=== PATIENT | female | born 1935 | race Caucasian/White ===

== ENCOUNTER 2016-10-13 18:11 | Observation (INO) | payer MEDICARE, OTHER ==
[2016-10-13] MEDS ORDERED: Acetaminophen TAB* 325 MG PO ONE (20:31)
[2016-10-13 21:07] LABS: Hematocrit 41 % (35-47); Hemoglobin 13.3 g/dl (12.0-16.0); Mean Corpuscular HGB Conc 32 g/dl (31-36); Mean Corpuscular Hemoglobin 28 pg (27-31); Mean Corpuscular Volume 87 fL (80-97); Mean Platelet Volume 9 um3 (7.4-10.4); Red Blood Count 4.73 10^6/ul (4.0-5.4); Red Cell Distribution Width 14 % (10.5-15); White Blood Count 13.8 10^3/ul (3.5-10.8)
--- NOTE | 2016-10-13 21:25 | RAD ---
INDICATION: Syncope. Right chest pain COMPARISON: None TECHNIQUE: An AP portable view obtained at 2103 hours is submitted. FINDINGS: Bones/Soft Tissues: There are no acute bony findings. Cardiomediastinal: The cardiomediastinal silhouette is mildly prominent. Lungs: There are no infiltrates. Pleura: There are no definite pleural effusions. Other: None IMPRESSION: MILDLY ENLARGED CARDIAC SILHOUETTE. NO ACTIVE DISEASE
--- NOTE | 2016-10-13 21:26 | RAD ---
INDICATION: Right elbow injury COMPARISON: None TECHNIQUE: AP and lateral views were obtained. FINDINGS: The bony structures, joint spaces, and soft tissues are normal for age. IMPRESSION: NO ACUTE BONY FINDINGS.
--- NOTE | 2016-10-13 21:27 | RAD ---
INDICATION: Right wrist injury COMPARISON: None TECHNIQUE: AP and lateral views were obtained. FINDINGS: There is a angulated fracture of the distal one third of the radial diaphysis. The angular deformity measures approximately 20 degrees. There is soft tissue swelling with mild deformity. There are no additional acute findings. There is degenerative change about the base of the thumb IMPRESSION: ANGULATED FRACTURE OF THE DISTAL DIAPHYSIS OF THE RADIUS
[2016-10-13 21:35] LABS: ALT 22 U/L (7-52); AST 37 U/L (13-39); Albumin 4.2 g/dL (3.2-5.2); Alkaline Phosphatase 65 U/L (34-104); Anion Gap 10 mmol/L (2-11); BUN/Creatinine Ratio 26.4 (8-20); Blood Urea Nitrogen 23 mg/dL (6-24); CO2 Carbon Dioxide 24 mmol/L (22-32); Calcium 9.3 mg/dL (8.6-10.3); Chloride 104 mmol/L (101-111); EGFR African American 80.6 (>60); EGFR Non-African American 62.6 (>60); Globulin 2.7 g/dL (2-4); Glucose 177 mg/dL (70-100); Potassium 3.6 mmol/L (3.5-5.0); Sodium 138 mmol/L (133-145); Total Protein 6.9 g/dL (6.4-8.9)
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
[2016-10-13 21:52] LABS: Alcohol < 10 mg/dL (<10)
[2016-10-13 22:02] LABS: TSH (Thyroid Stimulating Horm) 2.64 mcIU/mL (0.34-5.60)
[2016-10-13] MEDS ORDERED: oxyCODONE/Acetamin 5/325 MG* TAB PO PRN (22:13)
[2016-10-13] MEDS ORDERED: Morphine INJ* 2 MG/ML 1 ML CARPUJECT IV PRN (22:13)
[2016-10-13 22:27] LABS: Prolactin 6.9 ng/mL (1.0-25.0)
[2016-10-13] MEDS ORDERED: Enoxaparin(*) 40 MG/0.4 ML SYR SUBCUT SCH (23:00)
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
[2016-10-14 00:42] LABS: Urine Bacteria Absent (Absent); Urine Bilirubin Negative (Negative); Urine Glucose Negative (Negative); Urine Nitrite Negative (Negative)
[2016-10-14] MEDS: Acetaminophen TAB* 325 MG PO PRN ×2 (05:07→10:07)
[2016-10-14 05:44] LABS: BUN/Creatinine Ratio 26.5 (8-20); Calcium 8.9 mg/dL (8.6-10.3); EGFR African American 107.1 (>60); EGFR Non-African American 83.3 (>60); Potassium 3.5 mmol/L (3.5-5.0)
[2016-10-14] MEDS ORDERED: Levothyroxine TAB* 50 MCG TAB PO SCH (06:00)
[2016-10-14 07:53] LABS: Benzodiazepine Urine Screen None Detected (None Detect)
[2016-10-14] MEDS ORDERED: Aspirin Low Dose CHEW TAB* 81 MG PO SCH (09:00)
[2016-10-14] MEDS ORDERED: Losartan TAB* 25 MG PO SCH (09:00)
[2016-10-14] MEDS ORDERED: amLODIPine TAB* 5 MG PO SCH (09:00)
--- NOTE | 2016-10-14 10:27 | RAD ---
INDICATION: Syncope. COMPARISON: There are no prior studies available for comparison. TECHNIQUE: Multiple grayscale, color and Doppler tracings of the common, internal and external carotid and vertebral arteries were obtained. Stenosis estimations reflect velocity criteria that it been correlated to angiographic stenosis calculations based on the distal internal carotid diameter. RIGHT CAROTID: There is no significant plaque seen within the right carotid artery. The peak systolic velocity in the proximal right internal carotid artery is 76 cm/s and the maximum end-diastolic velocity is 13 cm/s. The peak systolic velocity in the distal right common carotid artery is 185 cm/s and the maximum end-diastolic velocity is 20 cm/s. The internal to common carotid artery ratio is 0.4. This would be consistent with a 0% stenosis. LEFT CAROTID: There is no plaque within the left carotid artery. The peak systolic velocity in the proximal left internal carotid artery is 93 cm/s and the maximum end-diastolic velocity is 26 cm/s. The peak systolic velocity in the distal left common carotid artery is 139 cm/s and the maximum end-diastolic velocity is 31 cm/s. The internal to common carotid artery ratio is 0.7. This would be consistent with a 0% stenosis. VERTEBRALS: There is antegrade flow in both vertebral arteries. IMPRESSION: NORMAL STUDY, NO EVIDENCE FOR CAROTID STENOSIS. CPT II Codes: 3100F
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
[2016-10-14 15:06] VITALS: BP 130/45
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
[2016-10-14] MEDS ORDERED: Atorvastatin* 10 MG TAB PO SCH (17:00)
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
== END 2016-10-14 15:55 | disposition home or self-care (01) ==
LOC: ED 18:11 → MEDTELE 23:30
PROVIDERS: ADMIT Hospitalist; ATTEND Internal Medicine
DX: R55 Syncope and collapse (principal); S52.501A Unspecified fracture of the lower end of right radius, initial encounter for closed fracture; V48.0XXA Car driver injured in noncollision transport accident in nontraffic accident, initial encounter; Y92.410 Unspecified street and highway as the place of occurrence of the external cause; I10 Essential (primary) hypertension; E03.9 Hypothyroidism, unspecified; D72.829 Elevated white blood cell count, unspecified; Z79.82 Long term (current) use of aspirin; Z79.899 Other long term (current) drug therapy; R94.31 Abnormal electrocardiogram [ECG] [EKG]
CPT/HCPCS: 36415; 70450; 71010; 80048; 80053; 80307; 80320; 81003; 81015; 83605; 83735; 84146; 84443; 84484; 85025; 87086; 93005; 93306; 93880; 96372; 99283; A9270-GY; G0378; G0480; J1650

== ENCOUNTER → 2016-10-20 09:55 | Day surgery (SDC) | payer OTHER ==
[~2016-10-20 09:55] MED LIST: Buffered Lidocaine 1% SYR 3ML* 3 ML/SYR SYRINGE INTRADERM ONE; Buffered Lidocaine 1% SYR 3ML* 3 ML/SYR SYRINGE ONE; Bupivacaine 0.25% SDV* 30 ML ONE; Dexamethasone IV* 4 MG/ML 1 ML (4 MG) IV SLOW PU ONE; Dexamethasone IV* 4 MG/ML 1 ML (4 MG) ONE; DiMENhydriNATE IV* 50 MG/ML VIAL IV PUSH PRN; Famotidine IV* 10 MG/ML 2 ML (20 mg) IV ONE; Famotidine IV* 10 MG/ML 2 ML (20 mg) ONE; HYDROmorphone INJ* 1 MG/ML CARPUJECT SYRINGE IV PRN; HYDROmorphone INJ* 1 MG/ML CARPUJECT SYRINGE ONE; Ketorolac INJ* 30 MG/ML 1 ML VIAL ONE; Lidocaine 2% PF * 5 ML VIAL ONE; Midazolam* 1 MG/ML 2 ML VIAL (2 MG) ONE; Ondansetron INJ* 2 MG/ML VIAL IV PRN; Ondansetron INJ* 2 MG/ML VIAL ONE; PROCHLORPERAZINE INJ 5 MG/ML 2 ML VIAL IV PRN; Propofol* 10 MG/ML 20 ML BTL IV PUSH ONE; ceFAZolin 2 GM PREMIX (*) 2 GM/50 ML BAG IVPB ONE; fentaNYL* 50 MCG/ML 2 ML VIAL (100 MCG VIAL) ONE; oxyCODONE/Acetamin 5/325 MG* TAB ONE
[2016-10-20] MEDS: fentaNYL* 50 MCG/ML 2 ML VIAL (100 MCG VIAL) IV PRN ×3 (14:18→15:42)
[2016-10-20 17:03] VITALS: BP 139/71
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
--- NOTE | 2016-10-21 07:42 | RAD ---
INDICATION: Traumatic fracture right radius-ORIF COMPARISON: Right wrist October 13, 2016 FINDINGS: 1 minute and 30 seconds of fluoroscopy were provided for the orthopedics department. Fluoroscopic spot imaging of the right wrist were obtained for operative control and show open reduction and internal fixation of the distal radial fracture with placement of a cortical plate and screws . CPT II Codes: 6045F (fluoro time doc)
== END | disposition home or self-care (01) ==
LOC: OR 09:55
PROVIDERS: ATTEND Orthopaedic Surgery
DX: S52.301A Unspecified fracture of shaft of right radius, initial encounter for closed fracture (principal); I34.0 Nonrheumatic mitral (valve) insufficiency; I10 Essential (primary) hypertension; E03.9 Hypothyroidism, unspecified; V89.2XXA Person injured in unspecified motor-vehicle accident, traffic, initial encounter; Y92.410 Unspecified street and highway as the place of occurrence of the external cause
CPT/HCPCS: 76000; A9270-GY; C1713; C1776; J0690; J1100; J1170; J1885; J2250; J2405; J2704; J3010

== ENCOUNTER → 2016-12-20 09:31 | Day surgery (SDC) | payer MEDICARE ==
[~2016-12-20 09:31] MED LIST changes: -Buffered Lidocaine 1% SYR 3ML* 3 ML/SYR SYRINGE INTRADERM ONE; -Buffered Lidocaine 1% SYR 3ML* 3 ML/SYR SYRINGE ONE; +Buffered Lidocaine 1% SYRIN* 3 ML/SYR SYRINGE INTRADERM ONE; -DiMENhydriNATE IV* 50 MG/ML VIAL IV PUSH PRN; -HYDROmorphone INJ* 1 MG/ML CARPUJECT SYRINGE IV PRN; -HYDROmorphone INJ* 1 MG/ML CARPUJECT SYRINGE ONE; -Ketorolac INJ* 30 MG/ML 1 ML VIAL ONE; +Lidocaine 1% INJ* 10 MG/ML 30 ML SDV ONE; -Lidocaine 2% PF * 5 ML VIAL ONE; -Ondansetron INJ* 2 MG/ML VIAL IV PRN; -PROCHLORPERAZINE INJ 5 MG/ML 2 ML VIAL IV PRN; -ceFAZolin 2 GM PREMIX (*) 2 GM/50 ML BAG IVPB ONE; +ceFAZolin 2 GM PREMIX(*) 2 GM/50 ML BAG IVPB ONE; -oxyCODONE/Acetamin 5/325 MG* TAB ONE
[2016-12-20 12:46] VITALS: BP 120/51
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
== END | disposition home or self-care (01) ==
LOC: OREAST 09:31
PROVIDERS: ATTEND Orthopaedic Surgery
DX: T81.69XA Other acute reaction to foreign substance accidentally left during a procedure, initial encounter (principal); I10 Essential (primary) hypertension; I34.0 Nonrheumatic mitral (valve) insufficiency; J45.909 Unspecified asthma, uncomplicated; E03.9 Hypothyroidism, unspecified; Y83.9 Surgical procedure, unspecified as the cause of abnormal reaction of the patient, or of later complication, without mention of misadventure at the time of the procedure
CPT/HCPCS: 87070; 87073; 87205; J0690; J1100; J2001; J2250; J2405; J2704; J3010

== ENCOUNTER 2018-05-31 14:31 | Day surgery (SDC) | payer MEDICARE ==
--- NOTE | 2018-05-30 16:07 | HP ---
PREOPERATIVE HISTORY AND PHYSICAL: DATE OF ADMISSION/SURGERY: 05/31/18 DATE OF OFFICE VISIT: 05/30/18 ATTENDING SURGEON: Dr. Lay Pemberton.* (DICTATED BY TRINO COLEMAN) PROCEDURE: Right forearm incision and drainage and exploration. CHIEF COMPLAINT: Right forearm. HISTORY OF PRESENT ILLNESS: Carlie is an 82-year-old female, who presents to the clinic for her right arm. She had a previous incision for removal of foreign body in that area after a right wrist ORIF. She notes in the past couple of months, she had a mass in her arm and in the past couple of weeks, it has been red and swollen. Dr. Pemberton ordered labs, which showed no evidence of acute infection, but she was seen today in clinic with a local abscess. She has had some chills, but denies fever. Her temperature today is within normal limits. She denies numbness, tingling, chest pain, shortness of breath, and is doing well otherwise. PAST MEDICAL HISTORY: Hypertension, asthma, high cholesterol, history of colitis, thyroid problems, depression, anxiety. PAST SURGICAL HISTORY: Hysterectomy, knee replacement, 2 surgeries for prolapse of bladder, back surgery, right wrist ORIF, right arm I and D, removal of foreign body. MEDICATIONS: 1. Cephalexin 250 mg 1 by mouth every 6 hours. 2. Asmanex Twisthaler 60 metered doses 200 mcg per inhalation. 3. Fluticasone propionate 50 mcg per ACT daily. 4. Amlodipine besylate 2.5 mg daily. 5. Atorvastatin 10 mg daily. 6. Losartan potassium 100 mg daily. 7. Synthroid 50 mcg daily 8. Levothyroxine 50 mcg 1 tab by mouth once daily. 9. Vitamin D2 2000 units 1 by mouth every day. 10. Vitamin B12 1000 mcg 1 by mouth every day. 11. Aspirin 81 mg 1 by mouth daily. 12. Sarah 180 mg 1 by mouth daily. 13. B-Plex Plus 1 daily. 14. Acephen 325 mg 1 by mouth daily. ALLERGIES: DUST MITE and POLLEN. FAMILY HISTORY: Positive for hypertension in her mother and father. SOCIAL HISTORY: She lives with her spouse. He has uidj-qf-ckoampnt dementia for which she is the primary caregiver. She is not working. She denies tobacco or alcohol use. She exercises occasionally. She is right-hand dominant. REVIEW OF SYSTEMS: A 14-point review of systems was reviewed with the patient. Positive for current complaint, otherwise negative. Positive for chills. Denies fever, chest pain, shortness of breath, history of bleeding disorder, history of DVT or PE. PHYSICAL EXAMINATION GENERAL: An 82-year-old, well-developed, well-nourished female, in no acute distress. Alert and oriented x3. Appropriate mood and affect. Appropriate balance and coordination of the upper extremities. VITAL SIGNS: Height 61, weight 132, blood pressure 126/60, respiratory rate 20 , temperature 97.7, BMI 24.9. HEENT: Normocephalic, atraumatic. PERRLA. Throat clear. NECK: Supple. PULMONARY: Lungs are clear to auscultation bilaterally. No wheezing, rhonchi, or rales. CARDIO: Regular rate and rhythm. S1, S2. No murmurs, gallops, or rubs. No edema. ABDOMEN: Positive bowel sounds. Soft, nontender. NEURO: Alert and oriented x3. Cranial nerves grossly intact. Sensation intact to light touch. MUSCULOSKELETAL: Right upper extremity: The incision is well healed. She does have a local abscess in the area that is fluctuant to palpation with surrounding warmth and erythema. Full range of motion of the elbow, wrist, and hand. Able to perform a thumbs-up, okay, flex and extend fingers and abduct her digits. +2 radial pulse. Sensation intact to light touch distally. Left upper extremity: Skin is intact. No warmth or erythema. Nontender to palpation. Full pain-free range of motion. DIAGNOSTIC STUDIES: No evidence of acute fracture or dislocation. ASSESSMENT: Right forearm abscess. PLAN: Carlie is an 82-year-old female, who presents to the clinic for followup of her right arm. She presents today in clinic with a right arm abscess that is worse from the previous visit; therefore, Dr. Pemberton has scheduled the patient to undergo a right forearm incision and drainage and exploration for treatment of the abscess. She will follow up 10 to 14 days postop and Percocet will be used for postop pain management. TRINO COLEMAN [id number]/[facility] #: [id number] [facility]
[2018-05-31] MEDS ORDERED: Ketorolac INJ* 30 MG/ML 1 ML VIAL IV PRN (15:35)
[2018-05-31] MEDS ORDERED: HYDROcodone/ACETAMIN 5-325 MG* 1 TAB PO PRN (15:35)
[2018-05-31] MEDS ORDERED: Naloxone* 0.4 MG/ML 1 ML VIAL IV PRN (15:35)
[2018-05-31] MEDS ORDERED: Acetaminophen TAB* 325 MG PO PRN (15:35)
[2018-05-31] MEDS ORDERED: oxyCODONE/Acetamin 5/325 MG* TAB PO PRN (15:35)
[2018-05-31] MEDS ORDERED: fentaNYL* 50 MCG/ML 2 ML VIAL (100 MCG VIAL) IV PRN (15:35)
[2018-05-31] MEDS ORDERED: DiMENhydriNATE IV* 50 MG/ML VIAL IV PUSH PRN (15:35)
[2018-05-31] MEDS ORDERED: fentaNYL* 50 MCG/ML 2 ML VIAL (100 MCG VIAL) ONE (17:12)
[2018-05-31] MEDS ORDERED: Propofol* 10 MG/ML 20 ML BTL IV PUSH ONE (17:12)
[2018-05-31] MEDS ORDERED: ceFAZolin 2 GM in NS PREMIX(*) 2 GM/100 ML BAG IVPB ONE (17:56)
[2018-05-31] MEDS ORDERED: Bupivacaine 0.25% SDV PF* 10 ML VIAL INJ ONE (18:01)
[2018-05-31] MEDS ORDERED: Lidocaine 1% INJ* 10 MG/ML 30 ML SDV ONE ×2 (18:11→18:43)
[2018-05-31 19:35] VITALS: BP 126/48
--- NOTE | 2018-06-02 06:37 | OP ---
DATE OF OPERATION: 05/31/18 [facility] DATE OF : 35 ATTENDING SURGEON: Lay Pemberton MD PHP PROGRAMMER: TRINO Watson ANESTHESIOLOGIST: Dr. Bernabe. PRE-OP DIAGNOSIS: Right arm abscess with possible retained foreign body. POST-OP DIAGNOSIS: Right arm abscess. INDICATIONS: Briefly, Carlie Patino is a pleasant 82-year-old female who has had an ORIF of her radius over a year and a half ago. She then had to go subsequently back for removal of foreign body from the dorsum of the wrist. She has noticed in the last few weeks an increasing swelling and redness and pain with touching it. We were watching her checking a CT scan to make sure there is no evidence of nonunion or infected union. But the swelling acutely got worse and reddened. She started developing some severe cellulitis. Decision was made to do an I and D and exploration. Risks and benefits were discussed at length including but not limited to bleeding; infection; damage to nerves, vessels, surrounding structures; wound nonhealing; persistent pain; need for further surgery; scarring; stiffness; incomplete relief of symptoms; and risk of anesthesia. DESCRIPTION OF PROCEDURE: The patient was greeted in the preoperative area by the attending surgeon. Correct extremity was marked, consent was confirmed. The patient was brought back to the operating suite where she was left on her stretcher and then a hand table was brought out. The right arm was draped in the usual sterile fashion with chlorhexidine soap, scrub, and alcohol wipe and a final prep with ChloraPrep. After appropriate surgical pause indicating site, side, procedure, and administration of antibiotics, a 15-blade was used to make an incision in line with the abscess. There was obvious blood and pus present. It was very superficial, did not go deep past the fascia. The fascial layer was identified. Soft tissue was carefully debrided. Approximately 3 L of sterile saline were then lavaged through the wound. Rims of the tissue were then debrided back and then the wounds were then closed with 3-0 Monocryl for deep layer and 3-0 nylon for her skin. Sterile dressings were applied. She was awoken from anesthesia and transferred to PACU in stable condition. POSTOPERATIVE PLAN: She will be nonweightbearing. She will be on Bactrim for approximately 7 days. We will start soapy soaks on postop day 1 or 2. I will see her in my office on Tuesday. [id number]/[facility] #: [id number] ANKIT
== END 2018-05-31 19:46 | disposition home or self-care (01) ==
LOC: OR 14:31
PROVIDERS: ATTEND Orthopaedic Surgery
DX: L02.413 Cutaneous abscess of right upper limb (principal); Z87.828 Personal history of other (healed) physical injury and trauma; I10 Essential (primary) hypertension; J45.909 Unspecified asthma, uncomplicated; F41.8 Other specified anxiety disorders; E78.5 Hyperlipidemia, unspecified; E03.9 Hypothyroidism, unspecified
CPT/HCPCS: 87070; 87073; 87205; J0690; J2704; J3010; J3490

== ENCOUNTER 2018-06-23 11:05 | Day surgery (SDC) | payer MEDICARE ==
[~2018-06-23 11:05] MED LIST changes: -Buffered Lidocaine 1% SYRIN* 3 ML/SYR SYRINGE INTRADERM ONE; -Bupivacaine 0.25% SDV* 30 ML ONE; -Dexamethasone IV* 4 MG/ML 1 ML (4 MG) IV SLOW PU ONE; -Dexamethasone IV* 4 MG/ML 1 ML (4 MG) ONE; -Famotidine IV* 10 MG/ML 2 ML (20 mg) IV ONE; -Famotidine IV* 10 MG/ML 2 ML (20 mg) ONE; -Lidocaine 1% INJ* 10 MG/ML 30 ML SDV ONE; -Midazolam* 1 MG/ML 2 ML VIAL (2 MG) ONE; -Ondansetron INJ* 2 MG/ML VIAL ONE; -Propofol* 10 MG/ML 20 ML BTL IV PUSH ONE; +Sodium Citrate/Citric Acid* 15 ML UDC PO ONE; -ceFAZolin 2 GM PREMIX(*) 2 GM/50 ML BAG IVPB ONE; -fentaNYL* 50 MCG/ML 2 ML VIAL (100 MCG VIAL) ONE
[2018-06-23] MEDS ORDERED: Sodium Citrate/Citric Acid* 15 ML UDC ONE (11:15)
[2018-06-23] MEDS ORDERED: ceFAZolin 2 GM in NS PREMIX(*) 2 GM/100 ML BAG IVPB ONE (11:15)
[2018-06-23] MEDS ORDERED: Mepivacaine 2% MPF (20 MG/ML)* 20 ML MPF ONE (13:58)
[2018-06-23] MEDS ORDERED: Mepivacaine 1% (10 MG/ML)* 30 ML SDV ONE (13:58)
[2018-06-23] MEDS ORDERED: Midazolam* 1 MG/ML 2 ML VIAL (2 MG) ONE (14:08)
[2018-06-23] MEDS ORDERED: fentaNYL* 50 MCG/ML 2 ML VIAL (100 MCG VIAL) ONE (14:08)
[2018-06-23] MEDS ORDERED: Propofol* 10 MG/ML 20 ML BTL IV PUSH ONE (14:38)
[2018-06-23] MEDS ORDERED: Vancomycin(*) 1,000 MG VIAL ONE (14:49)
[2018-06-23] MEDS ORDERED: Naloxone* 0.4 MG/ML 1 ML VIAL IV PRN (16:25)
[2018-06-23 16:42] VITALS: BP 134/62
--- NOTE | 2018-06-26 07:53 | RAD ---
INDICATION: Removal of hardware with bone biopsy , abscess upper limb COMPARISONS: June 20, 2018 CT TECHNIQUE: Fluoroscopy was provided for a surgical procedure. Total fluoroscopy time is: 29 seconds FINDINGS: Spot images demonstrate removal of the fixation plate of the radius. IMPRESSION: FLUOROSCOPY WAS PROVIDED FOR A SURGICAL PROCEDURE CPT II Codes: G9500
--- NOTE | 2018-06-26 09:30 | OP ---
CC: PCP, Dr. Mcdaniels * DATE OF OPERATION: 06/23/18 [facility] DATE OF : 35 SURGEON: Lay Pemberton MD SUPERVISOR DAIRY SANITATION: TRINO Pan ANESTHESIOLOGIST: Dr. Hernandez. PRE-OP DIAGNOSIS: Right forearm possible infection of a previous open reduction and internal fixation of the right radial shaft. POST-OP DIAGNOSIS: Right healed radius with foreign body and granuloma with no obvious infection. OPERATIVE PROCEDURE: 1. Right forearm removal of hardware. 2. Removal of foreign body. 3. I and D with 9 L of sterile saline. 4. Revision ORIF with Ene-Nashua plate. COMPLICATIONS: None. SPECIMENS: Sent to the lab for micro lab. No pathology specimen. ESTIMATED BLOOD LOSS: Minimal. TOURNIQUET TIME: 82 minutes. INDICATIONS: Carlie Patino is an 82-year-old female who underwent ORIF of her radial shaft in October 2016. Because of the bone quality and her skin quality during the surgery, the drill bit plunged and was wrapped in sterile towel. She healed well but has symptomatic dorsal mass that was then I and D and removed approximately 2 months later where the foreign body was identified. She was well for about a year and a half until she recently started to notice the swelling occurred and she struck it several times. There is concern for a possible abscess. She was taken to the OR approximately 2 to 3 weeks ago for revision I and D. There was no evidence of purulence or infection, but she started to develop more drainage. Lab values remained normal with a normal white blood cell count, ESR, CRP. CT scan was done that demonstrated that the bone had healed along the ulnar aspect, but there was a small defect in the radius, concern for possible infectious hardware was present. After extensive discussion with the family and the patient as well as consulting to hand specialist in the area, it was determined that removal of hardware and exploration would be appropriate. Possible revision of hardware with significantly thorough irrigation and debridement including removal of any sinus tract if it is present. Cultures were going to be obtained at the time of surgery as well for evaluation. After extensive discussion with the family and the patient, the risks and benefits were discussed at length included but not limited to bleeding; infection; damage to nerves, vessels, surrounding structures; risk of re-fracture; persistent pain, incomplete relief of symptoms ; risk of nonunion, malunion, recurrent infection, and risk of DVT and risk of anesthesia were discussed at length. The patient and her family elected to proceed. DESCRIPTION OF PROCEDURE: The patient was greeted in the preoperative area by the attending surgeon. Correct extremity was marked, consent was confirmed. The patient was brought back to the operating suite, was placed in a supine position on the operating room table. She underwent interscalene nerve block and local MAC. The right arm was then prepped and draped in the usual sterile fashion after an unsterile tourniquet was placed high in the proximal arm. The skin was prepped with chlorhexidine soap, scrub, and alcohol wipe and a final prep with ChloraPrep. There was no evidence of an abscess or any kind of break in the skin. There was a small amount of healed tissue from the previous incision dorsally. The volar wound had completely healed without any sort of erythema, warmth, or any signs or symptoms of infection. After appropriate surgical pause indicating side, site, procedure, and administration of antibiotics, the limb was exsanguinated. The tourniquet inflated of 250 mmHg. A 15-blade was used to make an incision volarly between the FCR, brachioradialis. The previous incision was opened and extended more distally and slightly more proximally as well. Soft tissues were carefully dissected. There was abundant scar that was present. The brachioradialis and radial artery were identified, FCR was also identified. Dissection again distally and tracked proximally. The hardware was readily available. Care was taken to protect the radial artery at all times as well as the brachioradialis and FCR. Once the plate was fully identified, there was no evidence of purulence or infection. Sample tissues were began being given to the testing tech. At this point, the screws were then all exposed and removed with an adequate purchase to the bone. At this point, a small curette was used to clean out the small screw holes, there were 6 total. There was no evidence of purulence. Once this was done, attention was directed dorsally. A fresh 15- blade was used to make an incision over the previously made incision where the dorsal mass had been. Soft tissue carefully exposed. Again, there was no pus or purulence. At this point, the curette was placed to the two holes that were most close to the fracture site to make sure there was no sinus tract to track all the way through the dorsal wound and which there was not and this was done. There was some yellowish type of granulation tissue, which was identified and noted for later review. The remainder of the plate was removed. The previous drill holes and the soft tissues from under the plate and around the plate in the fracture the site were then sent for specimen for culture and Gram stain. At this point, the small area of granulation tissue was identified dorsally. There was evidence of full union, but there was a small defect that was visible in her previous x-rays and CT scan. There was no evidence of nonunion. The fracture site was carefully probed and palpated, and it was found to be stable, but there was granulation tissue. This was tracked and was carefully removed with care to not damage the tendon, muscle tissue, or anything in its way. This was dissected very carefully with loupe magnification. As this was done, there was no evidence of necrosis or pus, but there was evidence of another foreign body, which may have been more towel from the initial surgery. The granuloma was carefully enveloped and tracked as far proximally and distally as possible until good healing bleeding tissue was identified. No muscle was taken. Once this was complete and the fracture site was also probed to make sure that there was no granulation tissue or any kind of formed tissue there, the screw sites were debrided once more. The wound was then copiously irrigated with 9 L of sterile saline to make sure there was connection volarly to dorsally as well. The wounds were copiously irrigated with a TURP tubing and then gentle gravity assisted irrigation. Once this was complete, images were obtained with the x-ray to visualize the fracture again. The patient is 82-year-old and has a high risk of falling and breaking through the small fracture site. Although there was a solid nonunion, she did move a portion of her fracture site and her bone quality while being okay quality was not robust quality. Decision was made to put a spanning plate longer than her previous plate to offer protection to prevent further fracture. A Ene-Nashua plate was then chosen, it is approximately a 9-hole plate. This was secured first, position was confirmed through arthroscopic visualization after the pronator was elevated distally and it was placed on the bone. Once the appropriate line was identified, it was fixed first distally with a nonlocking screw and then proximally. This plate did not conform well to her bone but was acceptable without significant overhang. After this was done, the more distal screws were then secured with care to gently be placed under the supinator with care not to stretch or extend or damage or perforate to cause iatrogenic damage to the PIN and radial artery. Then, attention was directed distally and the distal locking screws, 3, were then placed. Final images were obtained. The wounds were irrigated again. Powdered Vanco was placed about the volar and dorsal aspect of the wound. The soft tissues were then closed. The pronator was closed with 3-0 Monocryl distally. The skin was closed in layers with 3-0 Monocryl and #3 nylon suture. Dorsally, the wound was closed in a similar fashion. Sterile dressings were applied and a volar splint was applied. Tourniquet was deflated with a total time of 82 minutes. The extremities were pink and well perfused after surgery. She was given a sling and awoken from anesthesia, transferred to PACU in stable condition. POSTOPERATIVE PLAN: She will be nonweightbearing. She will be on the splint for approximately 10 days. She will be seen in the office after 10 to 14 days. She will be on at least 2 weeks of antibiotics. Cultures are pending and initial preliminary Gram stain and culture were negative. I will order repeat x -rays at her next visit. She will be discharged on Augmentin. DVT prophylaxis was considered but deferred due to no previous personal or family history. I will see the patient back in 10 to 14 days. [id number]/[facility] #: [id number] ANKIT
== END 2018-06-23 17:00 | disposition home or self-care (01) ==
LOC: OREAST 11:05
PROVIDERS: ATTEND Orthopaedic Surgery
DX: S52.331D Displaced oblique fracture of shaft of right radius, subsequent encounter for closed fracture with routine healing (principal); T81.59 Other complications of foreign body accidentally left in body following procedure; I10 Essential (primary) hypertension; E03.9 Hypothyroidism, unspecified; J45.909 Unspecified asthma, uncomplicated; F41.8 Other specified anxiety disorders; X58.XXXD Exposure to other specified factors, subsequent encounter; Y92.9 Unspecified place or not applicable
CPT/HCPCS: 76000; 87070; 87073; 87102; 87116; 87205; 87206; 88300; A9270-GY; C1713; J0670; J0690; J2250; J2704; J3010; J3370

== ENCOUNTER 2024-10-04 09:05 | Inpatient (IN) ==
[2024-10-04 11:08] LABS: Hematocrit 36.2 % (35-45); Hemoglobin 12.2 g/dL (11.5-14.3); Mean Corpuscular Hemoglobin 29.4 pg (27-33); Mean Corpuscular Hgb Conc 33.6 g/dL (31-36); Mean Corpuscular Volume 87.3 fL (80-97); Mean Platelet Volume 8.7 fL (7.5-11.2); Platelet Count 514 10^3/uL (150-450); Red Blood Count 4.14 10^6/uL (3.63-4.92); Red Cell Distribution Width 14.3 % (12-17); White Blood Count 18.9 10^3/uL (3.8-11.8)
[2024-10-04 11:42] LABS: ALT 17 U/L (7-52); Albumin/Globulin Ratio 1.3 (1-3); Alkaline Phosphatase 123 U/L (35-149); Anion Gap 15 mmol/L (2-16); Blood Urea Nitrogen 49 mg/dL (6-24); CO2 Carbon Dioxide 34 mmol/L (22-32); Calcium 11.7 mg/dL (8.6-10.3); Chloride 88 mmol/L (101-111); Creatinine, Serum 1.12 mg/dL (0.51-0.95); Globulin 3.1 g/dL (2-4); Glucose 118 mg/dL (70-100); Sodium 137 mmol/L (135-145); Total Bilirubin 0.7 mg/dL (0.2-1.0); Total Protein 7.1 g/dL (6.4-8.9); eGFR CKD-EPI 47.3 (>60)
[2024-10-04] MEDS: Iodixanol 320 (CONTRAST) 100 ML SDV IV ONE (12:25)
[2024-10-04 12:27] LABS: ABS Basophils 0.1 10^3/uL (0.0-0.1); ABS Lymphocytes 1.2 10^3/uL (1.0-4.8); ABS Monocytes 1.6 10^3/uL (0.0-0.9); Eosinophil % 0.2 %; Lymphocyte % 6.6 %
[2024-10-04 12:58] LABS: Potassium Redraw 2.5 mmol/L (3.5-5.0)
[2024-10-04] MEDS: KCL 20 MEQ/100 ML IVPREMIX 20 MEQ/100 ML BAG IV SCH (13:59)
[2024-10-04 14:02] LABS: Urine Appearance Turbid; Urine Bilirubin Negative (Negative); Urine Blood Negative (Negative); Urine Color Light-Yellow; Urine Glucose Negative (Negative); Urine Ketones Negative (Negative); Urine Nitrite Negative (Negative); Urine Protein Negative (Negative); Urine Specific Gravity 1.018 (1.002-1.030); Urine Urobilinogen 1+ (Negative)
[2024-10-04 14:04] LABS: Urine Bacteria 1+ /HPF (Absent); Urine Red Blood Cell 1+(3-5/hpf) /HPF (0-Trace); Urine White Blood Cell 3+(>20/hpf) /HPF (0-Trace)
[2024-10-04] MEDS: KCL 10 MEQ/50 ML IVPREMIX 10 MEQ/50 ML BAG IV SCH (15:30)
[2024-10-04 17:10] LABS: TSH Ultra Thyroid Stim Horm 0.81 mcIU/mL (0.34-5.60)
[2024-10-04 17:21] LABS: Folate > 20.00 ng/mL (5.90-24.80)
[2024-10-04 17:22] LABS: Vitamin B12 > 1450 pg/mL (180-914)
[2024-10-04] MEDS ORDERED: Senna TAB 8.6 mg TAB PO PRN (17:32)
[2024-10-04] MEDS: Enoxaparin 40 MG/0.4 ML SYR SUBCUT SCH (20:18)
[2024-10-04] MEDS: cefTRIAXone 1 gm/50 mL D5W 1 GM/50 ML BAG IV SCH (20:18)
[2024-10-04] MEDS: Lactated Ringers 1000 ml BAG 1,000 ML IV SCH (20:22)
[2024-10-05 05:54] LABS: Hematocrit 34.8 % (35-45); Hemoglobin 11.4 g/dL (11.5-14.3); Mean Corpuscular Hemoglobin 29.2 pg (27-33); Mean Corpuscular Hgb Conc 32.9 g/dL (31-36); Mean Corpuscular Volume 88.7 fL (80-97); Mean Platelet Volume 8.5 fL (7.5-11.2); Platelet Count 450 10^3/uL (150-450); Red Blood Count 3.92 10^6/uL (3.63-4.92); Red Cell Distribution Width 14.7 % (12-17); White Blood Count 18.1 10^3/uL (3.8-11.8)
[2024-10-05 06:06] LABS: ABS Basophils 0.1 10^3/uL (0.0-0.1); ABS Eosinophils 0.2 10^3/uL (0.0-0.5); ABS Lymphocytes 1.7 10^3/uL (1.0-4.8); ABS Monocytes 1.8 10^3/uL (0.0-0.9); ABS Neutrophils 14.2 10^3/uL (1.5-7.6); Eosinophil % 1.3 %; Lymphocyte % 9.5 %
[2024-10-05 06:35] LABS: Calcium 9.7 mg/dL (8.6-10.3); Creatinine, Serum 0.71 mg/dL (0.51-0.95); Magnesium 1.6 mg/dL (1.9-2.7); Phosphorus 2.1 mg/dL (2.5-5.0); Potassium 2.9 mmol/L (3.5-5.0); eGFR CKD-EPI 81.7 (>60)
[2024-10-05] MEDS: KCL 20 MEQ/100 ML IVPREMIX 20 MEQ/100 ML BAG IV SCH (09:50)
[2024-10-05] MEDS: Magnesium Sulf 4 GM/100 ML IV 4,000 MG/100 ML BAG IVPB ONE (09:50)
[2024-10-05] MEDS: Glycerin ADULT 2.4 gm SUPP PR ONE (13:57)
[2024-10-05] MEDS: cefTRIAXone 1 gm/50 mL D5W 1 GM/50 ML BAG IV SCH (20:12)
[2024-10-06 07:12] LABS: Hematocrit 39.6 % (35-45); Hemoglobin 12.9 g/dL (11.5-14.3); Mean Corpuscular Hgb Conc 32.6 g/dL (31-36); Mean Corpuscular Volume 88.9 fL (80-97); Mean Platelet Volume 8.5 fL (7.5-11.2); Platelet Count 450 10^3/uL (150-450); Red Blood Count 4.46 10^6/uL (3.63-4.92); Red Cell Distribution Width 14.6 % (12-17); White Blood Count 16.5 10^3/uL (3.8-11.8)
[2024-10-06 07:53] LABS: Calcium 9.1 mg/dL (8.6-10.3); Creatinine, Serum 0.74 mg/dL (0.51-0.95); Phosphorus 1.2 mg/dL (2.5-5.0); Potassium 3.2 mmol/L (3.5-5.0); eGFR CKD-EPI 77.8 (>60)
[2024-10-06] MEDS: Polyethylene Glycol 3350 17 GM PACKET PO PRN (08:38)
[2024-10-06] MEDS: Senna TAB 8.6 mg TAB PO SCH (08:38)
[2024-10-06] MEDS ORDERED: Potassium Chloride LIQUID 20 MEQ/15 ML LIQUID PO SCH (09:00)
[2024-10-06] MEDS: Potassium Phosphate IV 15 MMOL in NS 0.9% 250 ml 250 ML IVPB SCH (10:31)
[2024-10-06] MEDS: Lactated Ringers 1000 ml BAG 1,000 ML IV ONE (11:17)
[2024-10-06] MEDS ORDERED: Dextrose 50% VIAL 50 ml IV PRN (12:21)
[2024-10-06] MEDS: Sulfamethox/Trimethoprim DS TAB 800/160 mg PO SCH (12:37)
[2024-10-06 12:56] LABS: Vitamin D Total 25(OH) 33.8 ng/mL (20-50)
[2024-10-06] MEDS: Haloperidol 5 mg/ml SDV IV/IM 5 MG/ML AMP IM ONE ×2 (14:47→19:45)
[2024-10-06] MEDS: Enoxaparin 40 MG/0.4 ML SYR SUBCUT SCH (23:55)
[2024-10-07] MEDS ORDERED: Lorazepam PYXIS KEY PRN (01:15)
[2024-10-07] MEDS: LORazepam 2 mg VIAL 1 ml IV PUSH ONE (01:45)
[2024-10-07] MEDS: LORazepam 2 mg VIAL 1 ml ONE (01:51)
[2024-10-07 06:46] LABS: Hematocrit 36.7 % (35-45); Hemoglobin 12.1 g/dL (11.5-14.3); Mean Corpuscular Hemoglobin 29.4 pg (27-33); Mean Corpuscular Hgb Conc 32.9 g/dL (31-36); Mean Corpuscular Volume 89.4 fL (80-97); Platelet Count 394 10^3/uL (150-450); Red Cell Distribution Width 14.8 % (12-17); White Blood Count 13.2 10^3/uL (3.8-11.8)
[2024-10-07 06:51] LABS: ABS Basophils 0.1 10^3/uL (0.0-0.1); ABS Eosinophils 0.1 10^3/uL (0.0-0.5); ABS Lymphocytes 1.9 10^3/uL (1.0-4.8); ABS Monocytes 1.8 10^3/uL (0.0-0.9); ABS Neutrophils 9.3 10^3/uL (1.5-7.6); Eosinophil % 1.1 %; Lymphocyte % 14.3 %
[2024-10-07 07:01] LABS: Creatinine, Serum 0.7 mg/dL (0.51-0.95); Magnesium 1.6 mg/dL (1.9-2.7); Phosphorus 3.5 mg/dL (2.5-5.0); Potassium 3.8 mmol/L (3.5-5.0); eGFR CKD-EPI 83.1 (>60)
[2024-10-07] MEDS: Magnesium Sulf 4 GM/100 ML IV 4,000 MG/100 ML BAG IVPB ONE (09:56)
[2024-10-07] MEDS: Ziprasidone IM 20 mg VIAL 1 ml VIAL IM ONE (10:03)
[2024-10-07] MEDS: Haloperidol 5 mg/ml SDV IV/IM 5 MG/ML AMP IM ONE (10:12)
[2024-10-07] MEDS: NS 0.9% 500 ml BAG 500 ML IV ONE (23:44)
[2024-10-08 06:55] LABS: Hematocrit 35.7 % (35-45); Mean Corpuscular Hemoglobin 29.8 pg (27-33); Mean Corpuscular Hgb Conc 33.6 g/dL (31-36); Mean Corpuscular Volume 88.8 fL (80-97); Mean Platelet Volume 8.7 fL (7.5-11.2); Platelet Count 409 10^3/uL (150-450); Red Blood Count 4.02 10^6/uL (3.63-4.92); Red Cell Distribution Width 14.9 % (12-17); White Blood Count 9.9 10^3/uL (3.8-11.8)
[2024-10-08 07:11] LABS: Calcium 7.6 mg/dL (8.6-10.3); Creatinine, Serum 0.72 mg/dL (0.51-0.95); Magnesium 2.3 mg/dL (1.9-2.7); Potassium 3.8 mmol/L (3.5-5.0); eGFR CKD-EPI 80.4 (>60)
[2024-10-09 06:38] LABS: Hemoglobin 10.7 g/dL (11.5-14.3); Mean Corpuscular Hemoglobin 30.4 pg (27-33); Mean Corpuscular Hgb Conc 34.6 g/dL (31-36); Mean Corpuscular Volume 87.8 fL (80-97); Mean Platelet Volume 8.1 fL (7.5-11.2); Platelet Count 375 10^3/uL (150-450); Red Blood Count 3.53 10^6/uL (3.63-4.92); Red Cell Distribution Width 14.7 % (12-17)
[2024-10-09 07:14] LABS: Calcium 7.5 mg/dL (8.6-10.3); Creatinine, Serum 0.78 mg/dL (0.51-0.95); Magnesium 1.9 mg/dL (1.9-2.7); Potassium 3.5 mmol/L (3.5-5.0)
[2024-10-09] MEDS: Sulfamethox/Trimethoprim SUSP 800-160mg/20 ML UDC PO SCH (12:01)
[2024-10-10] MEDS: Dextrose 50% Syringe 50 ml 25 GM/50 ML SYRINGE IV PUSH PRN (05:52)
[2024-10-10 06:22] LABS: Hematocrit 32.7 % (35-45); Hemoglobin 10.8 g/dL (11.5-14.3); Mean Corpuscular Hemoglobin 29.2 pg (27-33); Mean Corpuscular Hgb Conc 33.1 g/dL (31-36); Mean Corpuscular Volume 88.2 fL (80-97); Mean Platelet Volume 8.4 fL (7.5-11.2); Platelet Count 380 10^3/uL (150-450); Red Blood Count 3.71 10^6/uL (3.63-4.92); Red Cell Distribution Width 14.7 % (12-17); White Blood Count 9.5 10^3/uL (3.8-11.8)
[2024-10-10 06:41] LABS: Calcium 7.6 mg/dL (8.6-10.3); Creatinine, Serum 0.74 mg/dL (0.51-0.95); Magnesium 1.7 mg/dL (1.9-2.7); Phosphorus 1.3 mg/dL (2.5-5.0); Potassium 3.7 mmol/L (3.5-5.0); eGFR CKD-EPI 77.8 (>60)
[2024-10-10] MEDS: Potassium Phosphate IV 15 MMOL in NS 0.9% 250 ml 250 ML IVPB ONE ×2 (07:34→08:23)
[2024-10-10] MEDS: NS 0.9% IVPB ONE (07:34)
[2024-10-10] MEDS: POTASSIUM PHOSPHATE IVPB ONE (07:34)
[2024-10-10] MEDS: Potassium Acid Phos 500 mg TAB PO ONE (13:25)
[2024-10-10 13:38] LABS: Rapid COVID-19 Molecular Undetected (Undetected)
[2024-10-10 13:40] VITALS: BP 142/56
== END 2024-10-10 15:10 | DRG 871 ==
LOC: EDHOLD 09:05 → ED 09:05 → SUATTDRO 13:58 → MED 10-05 11:49 → SUATTDRO 10-06 13:42 → MED 10-06 20:19
PROVIDERS: ADMIT Student in an Organized Health Care Education/Training Program; ATTEND Internal Medicine

== ENCOUNTER 2024-10-13 13:56 | Inpatient (IN) ==
[2024-10-13] MEDS: Ondansetron 4 mg VIAL 2 MG/ML 2 ml VIAL IV ONE (14:27)
[2024-10-13] MEDS: Piperacillin/Tazobac 3.375 BAG 3.375 GM/100 ML BAG IV ONE (14:28)
[2024-10-13] MEDS: Lactated Ringers 1000 ml BAG 1,000 ML IV ONE (14:37)
[2024-10-13] MEDS: Acetaminophen IV 1 GM/100ML 1,000 MG/100 ML BAG IV ONE (15:00)
[2024-10-13] MEDS: Iohexol 350 (CONTRAST) 500 ML MDV IV ONE (15:01)
[2024-10-13 15:03] LABS: Hematocrit 38.3 % (35-45); Hemoglobin 12.6 g/dL (11.5-14.3); Mean Corpuscular Hemoglobin 29.3 pg (27-33); Mean Corpuscular Hgb Conc 32.8 g/dL (31-36); Mean Corpuscular Volume 89.3 fL (80-97); Mean Platelet Volume 8.5 fL (7.5-11.2); Platelet Count 487 10^3/uL (150-450); Red Blood Count 4.29 10^6/uL (3.63-4.92); Red Cell Distribution Width 15.4 % (12-17); White Blood Count 37.7 10^3/uL (3.8-11.8)
[2024-10-13 15:49] LABS: Urine Appearance Clear; Urine Bilirubin Negative (Negative); Urine Blood Trace (Negative); Urine Color Yellow; Urine Glucose Negative (Negative); Urine Ketones Negative (Negative); Urine Nitrite Negative (Negative); Urine Protein Trace (Negative); Urine Urobilinogen 1+ (Negative); Urine pH 5.5 (5.0-8.0)
[2024-10-13 15:54] LABS: Albumin 3.4 g/dL (3.5-5.7); Albumin/Globulin Ratio 1.2 (1-3); Calcium 8.3 mg/dL (8.6-10.3); Creatinine, Serum 1.66 mg/dL (0.51-0.95); Globulin 2.9 g/dL (2-4); Total Bilirubin 0.6 mg/dL (0.2-1.0); Total Protein 6.3 g/dL (6.4-8.9); Urine Bacteria Absent /HPF (Absent); Urine Red Blood Cell 3+(>10/hpf) /HPF (0-Trace); Urine Squamous Epithelial Cell Present /HPF (Absent); Urine Transitional Epithelial Present /HPF (Absent); Urine White Blood Cell 3+(>20/hpf) /HPF (0-Trace); eGFR CKD-EPI 29.5 (>60)
[2024-10-13 16:02] LABS: ABS Basophils 0.1 10^3/uL (0.0-0.1); ABS Lymphocytes 0.7 10^3/uL (1.0-4.8); ABS Monocytes 1.5 10^3/uL (0.0-0.9); ABS Neutrophils 35.4 10^3/uL (1.5-7.6); Eosinophil % 0.1 %; Lymphocyte % 1.8 %
[2024-10-13 16:08] LABS: Potassium 3.6 mmol/L (3.5-5.0)
[2024-10-13 16:37] LABS: High Sensitivity Troponin 1 Hr 20 pg/mL (<15)
[2024-10-13 16:55] LABS: INR 1.11 (0.85-1.14)
[2024-10-13] MEDS ORDERED: Zosyn per Pharmacy NOTE FOLLOW UP SCH (18:00)
[2024-10-13] MEDS ORDERED: fentaNYL 100 mcg/2 ml 50 MCG/ML VIAL IV SLOW PU PRN (18:00)
[2024-10-13] MEDS: Lactated Ringers 1000 ml BAG 1,000 ML IV SCH (18:45)
[2024-10-13] MEDS: ZOSYN 3.375 GM Q12H per EXTENDED INFUSION IV SCH (21:28)
[2024-10-13] MEDS: Heparin 5000 UNITS/ML 1 mL VIAL SUBCUT SCH (21:29)
[2024-10-14] MEDS ORDERED: Acetaminophen IV 1 GM/100ML 1,000 MG/100 ML BAG IV PRN (00:37)
[2024-10-14] MEDS: fentaNYL 100 mcg/2 ml 50 MCG/ML VIAL IV SLOW PU PRN (01:16)
[2024-10-14] MEDS ORDERED: Lorazepam PYXIS KEY PRN (04:17)
[2024-10-14] MEDS: LORazepam 2 mg VIAL 1 ml IV PUSH ONE (04:35)
[2024-10-14 04:44] LABS: Hematocrit 35.8 % (35-45); Hemoglobin 11.9 g/dL (11.5-14.3); Mean Corpuscular Hemoglobin 29.2 pg (27-33); Mean Corpuscular Hgb Conc 33.2 g/dL (31-36); Mean Corpuscular Volume 87.9 fL (80-97); Platelet Count 437 10^3/uL (150-450); Red Blood Count 4.08 10^6/uL (3.63-4.92); Red Cell Distribution Width 15.4 % (12-17); White Blood Count 32.2 10^3/uL (3.8-11.8)
[2024-10-14 05:20] LABS: Albumin 2.9 g/dL (3.5-5.7); Albumin/Globulin Ratio 1.3 (1-3); Calcium 8.1 mg/dL (8.6-10.3); Creatinine, Serum 1.15 mg/dL (0.51-0.95); Globulin 2.3 g/dL (2-4); Potassium 3.8 mmol/L (3.5-5.0); Total Bilirubin 0.6 mg/dL (0.2-1.0); Total Protein 5.2 g/dL (6.4-8.9); eGFR CKD-EPI 45.8 (>60)
[2024-10-14 05:40] LABS: ABS Basophils 0.1 10^3/uL (0.0-0.1); ABS Lymphocytes 1.2 10^3/uL (1.0-4.8); ABS Monocytes 0.9 10^3/uL (0.0-0.9); Lymphocyte % 3.8 %; RBC Morphology Normal (Normal)
[2024-10-14] MEDS: Levothyroxine 100 MCG/5 ML VIAL IV SCH (05:52)
[2024-10-14] MEDS: Morphine 2 MG/ML SYRINGE IV PRN (12:49)
[2024-10-14] MEDS: D5LR 1000 ml BAG 1,000 ML IV SCH (13:14)
[2024-10-14] MEDS: Haloperidol 5 mg/ml SDV IV/IM 5 MG/ML AMP IV SLOW PU PRN (14:46)
[2024-10-14] MEDS ORDERED: Albuterol 2.5mg/3 ml (0.083%) NEB.SOLN INH PRN (15:51)
[2024-10-14] MEDS: ZOSYN 3.375 GM Q8H per EXTENDED INFUSION IV SCH (18:09)
[2024-10-14] MEDS: ZOSYN 3.375 GM Q12H per EXTENDED INFUSION IV SCH (23:17)
[2024-10-15 10:49] VITALS: BP 130/46
[2024-10-15] MEDS: SMOG Enema (MgOH-NS-Gly-MinO) 330 ML ENEMA PR ONE ×2 (11:42→16:37)
[2024-10-15] MEDS: Magnesium Sulfate 2 gm BAG 2 GM/50 ML BAG IVPB ONE (11:42)
[2024-10-15] MEDS ORDERED: Glycerin ADULT 2.4 gm SUPP PR PRN (13:20)
[2024-10-15] MEDS ORDERED: LORazepam 2 mg VIAL 1 ml IV PUSH PRN (14:30)
[2024-10-15] MEDS ORDERED: Lorazepam PYXIS KEY PRN (14:30)
[2024-10-15] MEDS ORDERED: Glycopyrrolate IV 0.2 MG/ML 1 ML VIAL IV SLOW PU PRN (14:45)
[2024-10-15] MEDS ORDERED: Haloperidol 5 mg/ml SDV IV/IM 5 MG/ML AMP IM PRN (14:59)
[2024-10-15] MEDS: Morphine 2 MG/ML SYRINGE IV PRN (15:39)
[2024-10-15] MEDS ORDERED: Ondansetron 4 mg VIAL 2 MG/ML 2 ml VIAL IV PRN (17:40)
== END 2024-10-15 22:33 | disposition expired | DRG 871 ==
LOC: ED 13:56 → EDHOLD 17:55 → SUATTDRO 17:55 → ICU 18:59 → MEDTELE 10-14 07:18
PROVIDERS: ADMIT Internal Medicine Critical Care Medicine; ATTEND Internal Medicine